=== PATIENT | female | born 1975 | race African-American/Black ===

== ENCOUNTER 2018-04-15 19:32 | Emergency (ER) | payer OTHER ==
[2018-04-15] MEDS ORDERED: ACETAMINOPHEN 500 MG TAB ONE (20:18)
[2018-04-15] MEDS ORDERED: NA CHLORIDE 0.9% 1,000 ML ONE ×2 (20:18→22:13)
--- NOTE | 2018-04-15 20:53 | RAD REPORT ---
EXAM DESCRIPTION: Samantha Sow (2 Views)04/15/2018 8:29 pm CLINICAL HISTORY: Cough COMPARISON: None FINDINGS: The lungs appear clear of acute infiltrate. The heart is normal size IMPRESSION: No acute abnormalities displayed
[2018-04-15 21:01] LABS: Absolute Lymphocytes (CBC) 1.1 K/uL (0.7-4.9); Absolute Monocytes 0.8 K/uL (0.1-1.3); Absolute Neutrophil 12.1 K/uL (1.8-8.0); Basophils % 0.5 % (0-1.3); Hematocrit 28.5 % (36.0-45.0); Lymphocytes % 7.9 % (15.3-44.8); MPV 9.1 fL (7.6-11.3); Monocytes % 5.5 % (3.3-12.3); RBC Red Blood Cell Count 4.77 M/uL (3.86-4.86)
[2018-04-15 21:04] LABS: Albumin 3.5 g/dL (3.4-5.0); Bilirubin Total 0.6 mg/dL (0.2-1.0); Potassium 3.2 mmol/L (3.5-5.1); Protein, Total 8.5 g/dL (6.4-8.2)
[2018-04-15] MEDS ORDERED: CEFTRIAXONE/SWI 1gm 1 GM/10 ML SYR ONE (21:58)
--- NOTE | 2018-04-15 22:03 | EDPHYS ---
Physician Documentation [facility] Name: Jamie Lucio Age: 42 yrs Sex: Female : 1975 Arrival Date: 04/15/2018 Time: 19:35 Bed 17 Private MD: ED Physician Chava Robb HPI: 04/15 19:57 This 42 yrs old Black Female presents to ER via Ambulatory with complaints of Sinus jmm Pain, BODY ACHE. 19:57 The patient or guardian reports cough, described as moderate. Onset: The jmm symptoms/episode began/occurred gradually, 1 week(s) ago. Associated signs and symptoms: Pertinent positives: fever. This is a 42 year old female with no chronic medical conditions that presents to the ED with complaints of cough, sinus congestion, fever beginning 1 week ago with body aches beginning today. Patient denies sore throat. . Historical: - Allergies: 19:37 No Known Allergies; la1 - Home Meds: 19:37 None [Active]; la1 - PMHx: 19:37 None; la1 - Immunization history:: Adult Immunizations up to date. - Social history:: Smoking status: Patient uses tobacco products, smokes one-half pack cigarettes per day. - Ebola Screening: : No symptoms or risks identified at this time. ROS: 19:57 Cardiovascular: Negative for chest pain, palpitations, and edema. jmm 19:57 Abdomen/GI: Negative for abdominal pain, nausea, vomiting, diarrhea, and constipation, MS/Extremity: Negative for injury and deformity, Skin: Negative for injury, rash, and discoloration. 19:57 Constitutional: Positive for body aches, chills, fever. 19:57 ENT: Positive for sinus congestion, sinus pain. 19:57 Respiratory: Positive for cough. 19:57 All other systems are negative. Exam: 19:57 Constitutional: This is a well developed, well nourished patient who is awake, alert, jmm and in no acute distress. Head/Face: atraumatic. 19:57 Eyes: EOMI, no conjunctival erythema appreciated Chest/axilla: Normal chest wall appearance and motion. 19:57 Abdomen/GI: Non distended, soft Back: Normal ROM Skin: General appearance color normal MS/ Extremity: Moves all extremities, no obvious deformities appreciated, no edema noted to the lower extremities Neuro: Awake and alert, normal gait Psych: Behavior is normal, Mood is normal, Patient is cooperative and pleasant 19:57 Head/face: Sinus tenderness, is not appreciated. 19:57 ENT: Posterior pharynx: erythema, that is mild. 19:57 Cardiovascular: Rate: tachycardic, Rhythm: regular. 19:57 Respiratory: the patient does not display signs of respiratory distress, Respirations: normal, Breath sounds: wheezing: that is mild, is heard in the left posterior lower lobe and right posterior lower lobe. Vital Signs: 19:37 BP 153 / 94; Pulse 130; Resp 18; Temp 100.6; Pulse Ox 96% on R/A; Weight 115.67 kg; la1 Height 5 ft. 5 in. (165.10 cm); 20:30 BP 141 / 75; Pulse 118; Resp 21; Temp 100.1; Pulse Ox 99% ; rr5 21:30 BP 125 / 76; Pulse 115; Resp 19; Pulse Ox 98% ; rr5 22:00 BP 117 / 60; Pulse 113; Resp 17; Temp 99; Pulse Ox 99% ; rr5 23:00 BP 123 / 69; Pulse 105; Resp 19; Pulse Ox 99% ; rr5 23:40 BP 114 / 62; Pulse 98; Resp 17; Pulse Ox 99% ; rr5 19:37 Body Mass Index 42.43 (115.67 kg, 165.10 cm) la1 MDM: 19:57 Patient medically screened. [facility] 21:06 Data reviewed: vital signs, nurses notes. [facility] 21:57 Data reviewed: lab test result(s), radiologic studies, plain films. Counseling: I had a [facility] detailed discussion with the patient and/or guardian regarding: the historical points, exam findings, and any diagnostic results supporting the discharge/admit diagnosis, lab results, radiology results, the need for outpatient follow up, to return to the emergency department if symptoms worsen or persist or if there are any questions or concerns that arise at home. ED course: Patient is alert and non toxic in appearance in the ED. No signs of resp distress. Patient is given strict return precautions. Patient understood and agrees with the plan of care. . 04/15 20:04 Order name: CBC with Diff [facility] 04/15 20:04 Order name: CMP; Complete Time: 21:22 [facility] 04/15 20:04 Order name: Procalcitonin; Complete Time: 21:52 [facility] 04/15 20:04 Order name: Flu; Complete Time: 21:26 [facility] 04/15 20:04 Order name: CBC with Automated Diff EDMS 04/15 21:06 Order name: Manual Differential EDMS 04/15 20:04 Order name: Saline Lock; Complete Time: 20:22 [facility] 04/15 20:04 Order name: Chest Pa And Lat (2 Views) XRAY; Complete Time: 20:55 [facility] 04/15 21:32 Order name: Vital Signs; Complete Time: 22:15 jm Administered Medications: 20:10 Drug: Tylenol 1000 mg Route: PO; rr5 22:25 Follow up: Response: No adverse reaction rr5 20:15 Drug: NS 0.9% 1000 ml Route: IV; Rate: 1 bolus; Site: right antecubital; rr5 21:30 Follow up: Response: No adverse reaction; IV Status: Completed infusion; IV Intake: rr5 1000ml 21:50 Drug: Rocephin - (cefTRIAXone) 1 grams Route: IVPB; Infused Over: 30 mins; Site: right rr5 antecubital; 23:22 Follow up: Response: No adverse reaction; IV Status: Completed infusion rr5 22:14 Drug: NS 0.9% 1000 ml Route: IV; Rate: 1 bolus; Site: right antecubital; rr5 23:40 Follow up: Response: No adverse reaction; IV Status: Completed infusion; IV Intake: rr5 1000ml 22:18 Drug: Motrin 400 mg Route: PO; rr5 23:22 Follow up: Response: No adverse reaction rr5 Disposition: 04/16 07:10 Co-signature as Attending Physician, Chava Robb MD I agree with the assessment and syd plan of care. Disposition: 04/15/18 22:03 Discharged to Home. Impression: Acute bronchitis, Acute sinusitis. - Condition is Stable. - Discharge Instructions: Acute Bronchitis, Adult, Sinusitis, Adult. - Prescriptions for Zithromax Z- Skip 250 mg Oral Tablet - take 1 tablet by ORAL route as directed for 5 days Day 1 - take two (2) tablets one time. Day 2, 3, 4 , 5 take one (1) tablet once daily.; 6 tablet. Albuterol Sulfate 90 mcg/actuation - inhale 1-2 puff by INHALATION route every 4-6 hours; 1 Inhaler. - Medication Reconciliation Form, Thank You Letter, Antibiotic Education, Prescription Opioid Use, Work release form form. - Follow up: Private Physician; When: 2 - 3 days; Reason: Recheck today's complaints, Continuance of care, Re-evaluation by your physician. Signatures: Dispatcher [employer] EDChava Landaverde MD MD cha Mickail, Joel, PA PA jmm Attema, Lee, RN RN la1 Yordy Blackmon RN RN rr5 Corrections: (The following items were deleted from the chart) 04/15 23:44 22:03 04/15/2018 22:03 Discharged to Home. Impression: Acute bronchitis; Acute rr5 sinusitis. Condition is Stable. Forms are Medication Reconciliation Form, Thank You Letter, Antibiotic Education, Prescription Opioid Use. Follow up: Private Physician; When: 2 - 3 days; Reason: Recheck today's complaints, Continuance of care, Re-evaluation by your physician. angela
--- NOTE | 2018-04-15 22:03 | ER ---
Nurse's Notes [facility] Name: Jamie Lucio Age: 42 yrs Sex: Female : 1975 Arrival Date: 04/15/2018 Time: 19:35 Bed 17 Private MD: Diagnosis: Acute bronchitis;Acute sinusitis Presentation: 04/15 19:36 Presenting complaint: Mother states: Sinus congestion for one week, chills starting la1 today with cough and fever. Transition of care: patient was not received from another setting of care. Onset of symptoms was April 15, 2018. Risk Assessment: Do you want to hurt yourself or someone else? Patient reports no desire to harm self or others. Initial Sepsis Screen: Does the patient meet any 2 criteria? HR > 90 bpm. Does the patient have a suspected source of infection? Yes: Productive cough/pneumonia. Care prior to arrival: None. 19:36 Method Of Arrival: Ambulatory la1 19:36 Acuity: SALVADOR 3 la1 Historical: - Allergies: 19:37 No Known Allergies; la1 - Home Meds: 19:37 None [Active]; la1 - PMHx: 19:37 None; la1 - Immunization history:: Adult Immunizations up to date. - Social history:: Smoking status: Patient uses tobacco products, smokes one-half pack cigarettes per day. - Ebola Screening: : No symptoms or risks identified at this time. Screenin:22 Abuse screen: Denies threats or abuse. Denies injuries from another. Nutritional rr5 screening: No deficits noted. Tuberculosis screening: No symptoms or risk factors identified. Fall Risk IV access (20 points). Total Butler Fall Scale indicates No Risk (0-24 pts). Assessment: 19:40 General: Appears in no apparent distress. uncomfortable, Behavior is calm, cooperative, rr5 appropriate for age. Pain: Complains of pain in sinus Pain does not radiate. Pain currently is 6 out of 10 on a pain scale. Quality of pain is described as aching, Pain began gradually, Is intermittent. 19:40 Neuro: Level of Consciousness is awake, alert, obeys commands, Oriented to person, rr5 place, time, situation, Appropriate for age. Cardiovascular: Capillary refill < 3 seconds Patient's skin is warm and dry. Respiratory: Reports cough that is sinus congestion Airway is patent Respiratory effort is even, unlabored, Respiratory pattern is regular, symmetrical. GI: No signs and/or symptoms were reported involving the gastrointestinal system. : No signs and/or symptoms were reported regarding the genitourinary system. EENT: Reports sinus congestion. Derm: Reports fever. Musculoskeletal: Capillary refill < 3 seconds, Range of motion: intact in all extremities. 20:30 Reassessment: Patient appears in no apparent distress at this time. No changes from rr5 previously documented assessment. 21:15 Reassessment: Patient appears in no apparent distress at this time. Patient is alert, rr5 oriented x 3, equal unlabored respirations, skin warm/dry/pink. awaiting for reports Patient states symptoms have improved. 22:05 Reassessment: Patient appears in no apparent distress at this time. Patient is alert, rr5 oriented x 3, equal unlabored respirations, skin warm/dry/pink. reassessment done by ED provider,for discharge after second liter of IV bolus Patient states feeling better. Patient states symptoms have improved. 23:18 Reassessment: Patient appears in no apparent distress at this time. Patient is alert, rr5 oriented x 3, equal unlabored respirations, skin warm/dry/pink. discharge instruction given and explained without complaints made. Patient states feeling better. Patient states symptoms have improved. Vital Signs: 19:37 BP 153 / 94; Pulse 130; Resp 18; Temp 100.6; Pulse Ox 96% on R/A; Weight 115.67 kg; la1 Height 5 ft. 5 in. (165.10 cm); 20:30 BP 141 / 75; Pulse 118; Resp 21; Temp 100.1; Pulse Ox 99% ; rr5 21:30 BP 125 / 76; Pulse 115; Resp 19; Pulse Ox 98% ; rr5 22:00 BP 117 / 60; Pulse 113; Resp 17; Temp 99; Pulse Ox 99% ; rr5 23:00 BP 123 / 69; Pulse 105; Resp 19; Pulse Ox 99% ; rr5 23:40 BP 114 / 62; Pulse 98; Resp 17; Pulse Ox 99% ; rr5 19:37 Body Mass Index 42.43 (115.67 kg, 165.10 cm) la1 ED Course: 19:35 Patient arrived in ED. es 19:37 Triage completed. la1 19:38 Arm band placed on left wrist. la1 19:54 Blackmon, Yordy, WILLIAM is Primary Nurse. rr5 19:56 Ronaldo Houston PA is PHCP. jmm 19:56 Chava Robb MD is Attending Physician. jmm 20:15 Patient has correct armband on for positive identification. Bed in low position. Call rr5 light in reach. Side rails up X 1. Pulse ox on. NIBP on. 20:15 Inserted saline lock: 20 gauge in right antecubital area, using aseptic technique. rr5 Blood collected. 20:27 Chest Pa And Lat (2 Views) XRAY In Process Unspecified. EDMS 22:26 CBC with Diff Sent. rr5 23:41 No provider procedures requiring assistance completed. IV discontinued, intact, rr5 bleeding controlled, No redness/swelling at site. Pressure dressing applied. Administered Medications: 20:10 Drug: Tylenol 1000 mg Route: PO; rr5 22:25 Follow up: Response: No adverse reaction rr5 20:15 Drug: NS 0.9% 1000 ml Route: IV; Rate: 1 bolus; Site: right antecubital; rr5 21:30 Follow up: Response: No adverse reaction; IV Status: Completed infusion; IV Intake: rr5 1000ml 21:50 Drug: Rocephin - (cefTRIAXone) 1 grams Route: IVPB; Infused Over: 30 mins; Site: right rr5 antecubital; 23:22 Follow up: Response: No adverse reaction; IV Status: Completed infusion rr5 22:14 Drug: NS 0.9% 1000 ml Route: IV; Rate: 1 bolus; Site: right antecubital; rr5 23:40 Follow up: Response: No adverse reaction; IV Status: Completed infusion; IV Intake: rr5 1000ml 22:18 Drug: Motrin 400 mg Route: PO; rr5 23:22 Follow up: Response: No adverse reaction rr5 Intake: 21:30 IV: 1000ml; Total: 1000ml. rr5 23:40 IV: 1000ml; Total: 2000ml. rr5 Outcome: 22:03 Discharge ordered by . jmm 23:41 Discharged to home ambulatory, with family. rr5 23:41 Condition: stable 23:41 Discharge instructions given to patient, family, Instructed on discharge instructions, follow up and referral plans. medication usage, Demonstrated understanding of instructions, follow-up care, medications, Prescriptions given X 2. 23:44 Patient left the ED. rr5 Signatures: Dispatcher [employer] EDRonaldo Warren PA PA jmm Salyer, Edna es Attema, Lee RN RN la1 Yordy Blackmon RN RN rr5
[2018-04-15] MEDS ORDERED: IBUPROFEN 400 MG TAB ONE (22:26)
[2018-04-15 22:27] LABS: Blood Morphology Comment NOTED (NOT SEEN); Hypochromasia 3+; Platelet Estimate ADEQ; Polychromasia SLIGHT
== END 2018-04-15 23:44 | disposition home or self-care (01) ==
LOC: ER 19:32
DX: J20.9 Acute bronchitis, unspecified (principal); J01.90 Acute sinusitis, unspecified; F17.210 Nicotine dependence, cigarettes, uncomplicated
CPT/HCPCS: 36415; 71046; 80053; 84145; 85025; 87804; 96361; 96365; 96366; 99284; J0696; J7030

== ENCOUNTER 2020-12-31 08:04 | Emergency (ER) | payer OTHER, SELFPAY ==
[2020-12-31 08:34] LABS: Urine Blood 2+ (Negative); Urine Glucose Negative (Negative); Urine Protein Negative (Negative)
--- NOTE | 2020-12-31 09:14 | ER ---
Nurse's Notes [facility] Name: Jamie Lucio Age: 45 yrs Sex: Female : 1975 Arrival Date: 12/31/2020 Time: 08:06 Bed 20 Private MD: Diagnosis: Murry's palsy Presentation: 12/31 08:09 Chief complaint: Patient states: facial numbness began yesterday morning as she walked ap3 outside. She thought at first it was just her face adjusting to the sunlight, but the symptom continues today. Coronavirus screen: At this time, the client does not indicate any symptoms associated with coronavirus-19. Ebola Screen: No symptoms or risks identified at this time. Initial Sepsis Screen: Does the patient meet any 2 criteria? No. Patient's initial sepsis screen is negative. Does the patient have a suspected source of infection? No. Patient's initial sepsis screen is negative. Risk Assessment: Do you want to hurt yourself or someone else? Patient reports no desire to harm self or others. Onset of symptoms was December 30, 2020. 08:09 Method Of Arrival: Ambulatory ap3 08:09 Acuity: SALVADOR 3 ap3 Triage Assessment: 08:12 General: Appears in no apparent distress. comfortable, Behavior is calm, cooperative. ap3 Pain: Denies pain. EENT:. Neuro: Level of Consciousness is awake, alert, obeys commands, Oriented to person, place, time, situation, Appropriate for age Fitness Consultant are equal bilaterally Gait is steady, Speech is normal, Facial droop on right, Facial symmetry: tongue is midline. Cardiovascular: Patient's skin is warm and dry. Respiratory: Airway is patent Respiratory effort is even, unlabored, Respiratory pattern is regular, symmetrical. 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 - Social history:: Smoking status: Patient reports the use of cigarette tobacco products, denies chronic smoking, but will smoke occasionally. - Family history:: not pertinent. Screenin:18 Abuse screen: Denies threats or abuse. Denies injuries from another. Nutritional tc5 screening: No deficits noted. Tuberculosis screening: No symptoms or risk factors identified. Fall Risk None identified. Assessment: 08:18 Reassessment: patient provided with urine specimen container and education on proper ap3 urine collection. Patient verbalized understanding. 09:17 General: Appears in no apparent distress. Behavior is calm, cooperative, appropriate tc5 for age, rt side facial droop since Monday pt states LKN around noon. pt has no other deficits.. Vital Signs: 08:09 BP 169 / 98; Pulse 91; Resp 18; Temp 98.6; Pulse Ox 100% on R/A; Weight 112.04 kg; ap3 Height 5 ft. 5 in. (165.10 cm); Pain 0/10; 08:09 Body Mass Index 41.10 (112.04 kg, 165.10 cm) ap3 NIH Stroke Scale Scores: 09:09 NIHSS Score: 1 syd ED Course: 08:06 Patient arrived in ED. rg4 08:11 Triage completed. ap3 08:13 Arm band placed on right wrist. ap3 08:18 Chava Robb MD is Attending Physician. syd 08:20 Lona Garcia, WILLIAM is Primary Nurse. tc5 09:13 Jesus Pena MD is Referral Physician. syd 09:26 Patient has correct armband on for positive identification. tc5 09:26 No provider procedures requiring assistance completed. tc5 Administered Medications: 08:59 Drug: predniSONE 60 mg Route: PO; tc5 09:25 Follow up: Response: No adverse reaction tc5 09:16 Drug: Valtrex (valACYclovir) 1000 mg Route: PO; tc5 09:25 Follow up: Response: No adverse reaction tc5 09:25 Drug: Aspirin Chewable Tablet 162 mg Route: PO; tc5 09:25 Follow up: Response: No adverse reaction tc5 Outcome: 09:13 Discharge ordered by . syd 09:26 Discharged to home ambulatory, with family. tc5 09:26 Condition: stable 09:26 Discharge instructions given to patient. 09:38 Patient left the ED. tc5 NIH Stroke Scale - NIH Stroke Score Date: 12/31/2020 Time: 09:09 Total Score = 1 1a. Level of Consciousness (LOC) - 0(Alert) 1b. Level of Consciousness (LOC) (Month \T\ Age) - 0(Both) 1c. LOC Commands (Open \T\ Closes Eyes/[employer] Systems Engineer) - 0(Both) 2. Best Gaze (Lateral Gaze Paresis) - 0(Normal) 3. Visual Field Loss - 0(No visual loss) 4. Facial Palsy - 1(Minor Paralysis) 5a. Left Arm: Motor (10-second hold) - 0(No drift) 5b. Right Arm: Motor (10-second hold) - 0(No drift) 6a. Left Leg: Motor (5-second hold - always test supine) - 0(No drift) 6b. Right Leg: Motor (5-second hold - always test supine) - 0(No drift) 7. Limb Ataxia (finger/nose \T\ heel/shabazz - test with eyes open) - 0(Absent) 8. Sensory Loss (pinprick arms/legs/face) - 0(Normal) 9. Best Language: Aphasia (description/naming/reading) - 0(No aphasia) 10. Dysarthria (speech clarity - read or repeat words) - 0(Normal) 11. Extinction and Inattention (visual/tactile/auditory/spatial/personal) - 0(No abnormality) Initials: syd Signatures: Chava Robb MD MD cha Garcia, Rubi rg4 Silvia Weems RN RN ap3 Lona Garcia, WILLIAM RN tc5
--- NOTE | 2020-12-31 09:14 | EDPHYS ---
Physician Documentation [facility] Name: Jamie Lucio Age: 45 yrs Sex: Female : 1975 Arrival Date: 12/31/2020 Time: 08:06 Bed 20 Private MD: ED Physician Chava Robb HPI: 12/31 09:07 This 45 yrs old Black Female presents to ER via Ambulatory with complaints of Numbness syd Of Face, Numbness Of Arm. 09:07 The patient's problem is reported as a facial droop, on right. Onset: The syd symptoms/episode began/occurred yesterday. Duration: The episode is continuous. Context: the episode(s) was witnessed, by family, . The symptoms are alleviated by nothing. The symptoms are aggravated by nothing. Associated signs and symptoms: The patient has no apparent associated signs or symptoms. Severity of symptoms: At their worst the symptoms were moderate in the emergency department the symptoms are unchanged. Severity of symptoms: At their worst the symptoms were. Patient's baseline: Neuro: alert and fully oriented. 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 - Social history:: Smoking status: Patient reports the use of cigarette tobacco products, denies chronic smoking, but will smoke occasionally. - Family history:: not pertinent. ROS: 09:09 Constitutional: Negative for fever, chills, and weight loss, Eyes: Negative for injury, syd pain, redness, and discharge, ENT: Negative for injury, pain, and discharge, Neck: Negative for injury, pain, and swelling, Cardiovascular: Negative for chest pain, palpitations, and edema, Respiratory: Negative for shortness of breath, cough, wheezing, and pleuritic chest pain, Abdomen/GI: Negative for abdominal pain, nausea, vomiting, diarrhea, and constipation, Back: Negative for injury and pain, : Negative for injury, bleeding, discharge, and swelling, MS/Extremity: Negative for injury and deformity, Skin: Negative for injury, rash, and discoloration, Psych: Negative for depression, anxiety, suicide ideation, homicidal ideation, and hallucinations, Allergy/Immunology: Negative for hives, rash, and allergies, Endocrine: Negative for neck swelling, polydipsia, polyuria, polyphagia, and marked weight changes, Hematologic/Lymphatic: Negative for swollen nodes, abnormal bleeding, and unusual bruising. 09:09 Neuro: Positive for weakness, of the forehead, right eye, right cheek and right jaw. Exam: 09:09 Constitutional: This is a well developed, well nourished patient who is awake, alert, syd and in no acute distress. Head/Face: Normocephalic, atraumatic. Eyes: Pupils equal round and reactive to light, extra-ocular motions intact. Lids and lashes normal. Conjunctiva and sclera are non-icteric and not injected. Cornea within normal limits. Periorbital areas with no swelling, redness, or edema. ENT: Nares patent. No nasal discharge, no septal abnormalities noted. Tympanic membranes are normal and external auditory canals are clear. Oropharynx with no redness, swelling, or masses, exudates, or evidence of obstruction, uvula midline. Mucous membranes moist. Neck: Trachea midline, no thyromegaly or masses palpated, and no cervical lymphadenopathy. Supple, full range of motion without nuchal rigidity, or vertebral point tenderness. No Meningismus. Chest/axilla: Normal chest wall appearance and motion. Nontender with no deformity. No lesions are appreciated. Cardiovascular: Regular rate and rhythm with a normal S1 and S2. No gallops, murmurs, or rubs. Normal PMI, no JVD. No pulse deficits. Respiratory: Lungs have equal breath sounds bilaterally, clear to auscultation and percussion. No rales, rhonchi or wheezes noted. No increased work of breathing, no retractions or nasal flaring. Abdomen/GI: Soft, non-tender, with normal bowel sounds. No distension or tympany. No guarding or rebound. No evidence of tenderness throughout. Back: No spinal tenderness. No costovertebral tenderness. Full range of motion. Skin: Warm, dry with normal turgor. Normal color with no rashes, no lesions, and no evidence of cellulitis. MS/ Extremity: Pulses equal, no cyanosis. Neurovascular intact. Full, normal range of motion. Psych: Awake, alert, with orientation to person, place and time. Behavior, mood, and affect are within normal limits. 09:09 Neuro: Orientation: is normal, appropriate for stated age, no acute changes, Mentation: is normal, appropriate for stated age, no acute changes, Memory: is normal, appropriate for stated age, no acute changes, Cranial nerves: facial droop noted on left, with forehead involved. Cerebellar function: is grossly normal, is grossly normal based on the patient's age, no acute changes, Motor: is normal, is grossly normal based on the patient's age, no acute changes, moves all fours, strength is normal, Sensation: is normal, no obvious gross deficits, appropriate no acute changes, Gait: is steady, appropriate for age, Babinski testing is normal, seizure activity, is not displayed by the patient. Vital Signs: 08:09 BP 169 / 98; Pulse 91; Resp 18; Temp 98.6; Pulse Ox 100% on R/A; Weight 112.04 kg; ap3 Height 5 ft. 5 in. (165.10 cm); Pain 0/10; 08:09 Body Mass Index 41.10 (112.04 kg, 165.10 cm) ap3 NIH Stroke Scale Scores: 09:09 NIHSS Score: 1 syd MDM: 08:18 Patient medically screened. syd 09:11 Differential diagnosis: CVA, TIA, paralysis. Data reviewed: vital signs, nurses notes. syd Data interpreted: petal cutter: rate is 91 beats/min, rhythm is regular, Pulse oximetry: on room air. Test interpretation: by ED physician or midlevel provider:. 12/31 08:34 Order name: Urine Dipstick-Ancillary; Complete Time: 08:44 EDMS 12/31 08:36 Order name: Urine --Ancillary (enter results) bd Administered Medications: 08:59 Drug: predniSONE 60 mg Route: PO; tc5 09:25 Follow up: Response: No adverse reaction tc5 09:16 Drug: Valtrex (valACYclovir) 1000 mg Route: PO; tc5 09:25 Follow up: Response: No adverse reaction tc5 09:25 Drug: Aspirin Chewable Tablet 162 mg Route: PO; tc5 09:25 Follow up: Response: No adverse reaction tc5 Disposition Summary: 12/31/20 09:13 Discharge Ordered Location: Home syd Problem: new syd Symptoms: have improved syd Condition: Stable syd Diagnosis - Murry's palsy syd Followup: syd - With: Private Physician - When: 2 - 3 days - Reason: Recheck today's complaints, Continuance of care, Re-evaluation by your physician Followup: syd - With: Jesus Pena MD - When: 2 - 3 days - Reason: Recheck today's complaints, Re-evaluation by your physician Discharge Instructions: - Discharge Summary Sheet syd - Murry Palsy, Adult syd - Aspirin and Your Heart syd Forms: - Medication Reconciliation Form [facility] - Thank You Letter [facility] - Antibiotic Education [facility] - Prescription Opioid Use [facility] Prescriptions: - Artificial Tears (gilmar/min) - instill 1 application by OPHTHALMIC route 6 times per day; 1 Applicator; [facility] Refills: 0, Product Selection Permitted - Valtrex 1 gram Oral tablet - take 1 tablet by ORAL route 3 times per day; 21 tablet; Refills: 0, Product syd Selection Permitted - Prednisone 20 mg Oral Tablet - take 3 tablets by ORAL route once daily for 5 days; 15 tablet; Refills: 0, syd Product Selection Permitted NIH Stroke Scale - NIH Stroke Score Date: 12/31/2020 Time: 09:09 Total Score = 1 1a. Level of Consciousness (LOC) - 0(Alert) 1b. Level of Consciousness (LOC) (Month \T\ Age) - 0(Both) 1c. LOC Commands (Open \T\ Closes Eyes/Classification Control Clerk) - 0(Both) 2. Best Gaze (Lateral Gaze Paresis) - 0(Normal) 3. Visual Field Loss - 0(No visual loss) 4. Facial Palsy - 1(Minor Paralysis) 5a. Left Arm: Motor (10-second hold) - 0(No drift) 5b. Right Arm: Motor (10-second hold) - 0(No drift) 6a. Left Leg: Motor (5-second hold - always test supine) - 0(No drift) 6b. Right Leg: Motor (5-second hold - always test supine) - 0(No drift) 7. Limb Ataxia (finger/nose \T\ heel/shabazz - test with eyes open) - 0(Absent) 8. Sensory Loss (pinprick arms/legs/face) - 0(Normal) 9. Best Language: Aphasia (description/naming/reading) - 0(No aphasia) 10. Dysarthria (speech clarity - read or repeat words) - 0(Normal) 11. Extinction and Inattention (visual/tactile/auditory/spatial/personal) - 0(No abnormality) Initials: syd Signatures: Dispatcher [employer] Chava Andrea MD MD cha Prokisch, Amanda, RN RN ap3 Lona Garcia RN RN tc5
[2020-12-31] MEDS ORDERED: predniSONE 20 MG TAB ONE (09:23)
[2020-12-31] MEDS ORDERED: VALACYCLOVIR 500 MG TAB ONE (09:38)
[2020-12-31 09:45] VITALS: BP 169/98; TEMP 98.6; O2SAT 100
[2020-12-31] MEDS ORDERED: ASPIRIN EC 81 MG TAB PO ONE (09:46)
[2020-12-31] MEDS ORDERED: ASPIRIN 81 MG CHEWABLE TABLET ONE (09:48)
[2020-12-31] MEDS ORDERED: VALACYCLOVIR 500 MG TAB PO ONE (10:00)
== END 2020-12-31 09:38 | disposition home or self-care (01) ==
LOC: ER 08:04
DX: G51.0 Bell's palsy (principal); F17.210 Nicotine dependence, cigarettes, uncomplicated
CPT/HCPCS: 81003; 81025; 99283; J7512